=== PATIENT | female | born 1930 | race Hispanic/Latino ===

== ENCOUNTER 2018-06-05 09:44 | Inpatient (IN) | payer MEDICARE ==
[2018-06-05 09:46] VITALS: BMI 26.4
--- NOTE | 2018-06-05 11:07 | ED PDOC ---
Arrival/HPI - General Chief Complaint: Trauma Time Seen by Provider: 06/05/18 10:02 Historian: Patient - History of Present Illness Narrative History of Present Illness (Text): 06/05/18 10:02 Trisha Fink is an 87 year old female who presents to the emergency department with complaints of lower back pain, knee pain, and dizziness s/p mechanical fall this morning. Patient informs she became dizzy upon getting out of bed to go to the restroom. Patient remained on the floor and was unable to move for several hours. Patient informs she has history of falling and vertigo. Patient states her dizziness felt consistent with past episodes of vertigo. Patient informs no loss of consciousness and denies any urinary or bowel incontinence. Patient currently takes Xanax and Meclizine. Patient denies fevers, chills, headache, chest pain, shortness of breath, dyspnea on exertion, cough, abdominal pain, nausea, vomiting, diarrhea, neck pain, or any other complaint. Past medical history: Tinnitus, hypertension, osteoarthritis Past surgical history: left knee replacement PMD: Dr. Pierre Time/Duration: 4-6 hours Symptom Onset: Sudden Activities at Onset: Light Context: Home Past Medical History - Provider Review Nursing Documentation Reviewed: Yes - Tetanus Immunization Tetanus Immunization: Unknown - Cardiac Hx Cardiac Disorders: Yes Hx Hypertension: Yes - Pulmonary Hx Respiratory Disorders: No Hx Asthma: No Hx Bronchitis: No Hx Chronic Obstructive Pulmonary Disease (COPD): No Hx Emphysema: No Hx Pneumonia: No Hx Respiratory Aspiration: No Hx Respiratory Tract Infection: No Hx Sleep Apnea: No Hx Tuberculosis: No - Neurological Hx Dizziness: Yes Hx Transient Ischemic Attacks (TIA): No - HEENT Hx HEENT Disorder: Yes Hx Blind: No Hx Cataracts: No Hx Deafness: No Hx Difficulty Chewing: No Hx Epistaxis: No Hx Glaucoma: Yes Hx Macular Degeneration: No Other/Comment: Tinitus - Renal Hx Renal Disorder: No Hx Dialysis: No Hx Kidney Stones: No Hx Neurogenic Bladder: No Hx Pyelonephritis: No Hx Renal Cancer: No Hx Renal Failure: No - Endocrine/Metabolic Hx Diabetes Mellitus Type 1: No Hx Diabetes Mellitus Type 2: No - Hematological/Oncological Hx Blood Disorders: No Hx AIDS: No Hx Anemia: No Hx Cancer: No Hx Chemotherapy: No Hx Cirrhosis: No Hx Hemophilia: No Hx Hepatitis A: No Hx Hepatitis B: No Hx Hepatitis C: No Hx Metastasis: No Hx Shingles: No Hx Sickle Cell Disease: No Hx Unexplained Bleeding: No - Integumentary Hx Dermatological Disorder: No Hx Basal Cell Carcinoma: No Hx Eczema: No Hx Melanoma: No Hx Psoriasis: No Hx Squamous Cell Carcinoma: No - Musculoskeletal/Rheumatological Hx Arthritis: Yes Hx Osteoporosis: Yes - Gastrointestinal Hx Gastrointestinal Disorders: Yes (CONSTIPATION,DIVERTICULITIS) - Genitourinary/Gynecological Hx Genitourinary Disorders: Yes (URINARY FREQUENCY,URGENCY,UTI) Hx Reproductive Disorders: No - Psychiatric Hx Psychophysiologic Disorder: Yes Hx Anxiety: Yes Hx Bipolar Disorder: No Hx Depression: No Hx Emotional Abuse: No Hx Hallucinations: No Hx Panic Disorder: No Hx Post Traumatic Stress Disorder: No Hx Psychosis: No Hx Physical Abuse: No Hx Schizophrenia: No Hx Sexual Abuse: No Hx Substance Use: No - Surgical History Hx Amputation: No Hx Appendectomy: No Hx Cardiac Catheterization: No Hx Cholecystectomy: No Hx Coronary Stent: No Hx Gastric Bypass Surgery: No Hx Hysterectomy: No Hx Joint Replacement: Yes (lt knee replacement) Hx Kidney Transplant: No Hx Liver Transplant: No Hx Mastectomy: No Hx Musculoskeletal Surgery: No Hx Open Heart Surgery: No Hx Orthopedic Surgery: No Hx Splenectomy: No Hx Valve Replacement: No - Suicidal Assessment Feels Threatened In Home Enviroment: No Family/Social History - Physician Review Nursing Documentation Reviewed: Yes Family/Social History: No Known Family HX Smoking Status: Former Smoker Hx Alcohol Use: No Hx Substance Use: No Allergies/Home Meds Allergies/Adverse Reactions: Allergies venom-honey bee [bee venom (honey bee)] Allergy (Verified 06/05/18 10:15) SWELLING Hair Dye Allergy (Uncoded 06/05/18 10:15) URTICARIA Home Medications: Home Meds Medication Instructions Recorded Confirmed ALPRAZolam 0.5 mg PO HS 09/26/15 06/05/18 Aspirin [Adult Low Dose Aspirin EC] 81 mg PO DAILY 06/05/18 06/05/18 Cholecalciferol (Vitamin D3) 2,000 unit PO DAILY 06/05/18 06/05/18 [Vitamin D3] Famotidine [Heartburn Prevention] 20 mg PO BID 06/05/18 06/05/18 Ibuprofen [Motrin Tab] 800 mg PO BID 06/05/18 06/05/18 Meclizine [Antivert] 12.5 mg PO TID PRN 06/05/18 06/05/18 Review of Systems - Physician Review All systems were reviewed & negative as marked: Yes - Review of Systems Constitutional: absent: Fevers, Night Sweats Respiratory: absent: SOB, Cough Cardiovascular: absent: Chest Pain Gastrointestinal: absent: Abdominal Pain, Diarrhea, Nausea, Vomiting Genitourinary Female: absent: Urine Output Changes Musculoskeletal: Arthralgias (both knees), Back Pain (lower back and spine) Neurological: Dizziness. absent: Headache Physical Exam Vital Signs Reviewed: Yes Vital Signs Temp Pulse Resp BP Pulse Ox 06/05/18 09:58 97.9 F 88 18 178/94 H 97 Temperature: Afebrile Blood Pressure: Hypertensive Pulse: Regular Respiratory Rate: Normal Appearance: Positive for: Well-Appearing, Non-Toxic, Comfortable Pain Distress: None Mental Status: Positive for: Alert and Oriented X 3 - Systems Exam Head: Present: Atraumatic, Normocephalic Pupils: Present: PERRL Extroacular Muscles: Present: EOMI Conjunctiva: Present: Normal Ears: Present: Normal, NORMAL TM. No: Erythema Mouth: Present: Moist Mucous Membranes Pharnyx: Present: Normal. No: ERYTHEMA, EXUDATE Nose (Internal): Present: Normal Inspection, No Active Bleeding, Moist. No: Purulent Mucous, Septal Deviation, Septal Hematoma Neck: Present: Normal Range of Motion. No: Meningeal Signs, MIDLINE TENDERNESS Respiratory/Chest: Present: Clear to Auscultation, Good Air Exchange. No: Respiratory Distress, Accessory Muscle Use Cardiovascular: Present: Regular Rate and Rhythm, Normal S1, S2. No: Murmurs Abdomen: No: Tenderness, Distention, Peritoneal Signs Back: Present: Paraspinal Tenderness (left side). No: Other (No vertebral tenderness) Upper Extremity: Present: Normal Inspection, NORMAL PULSES, Neurovascularly Intact. No: Cyanosis, Edema Lower Extremity: Present: Normal Inspection, NORMAL PULSES, Neurovascularly Intact. No: Edema, Tenderness (right knee pain but no tenderness) Neurological: Present: GCS=15, CN II-XII Intact, Speech Normal Skin: Present: Warm, Dry, Normal Color. No: Rashes Psychiatric: Present: Alert, Oriented x 3, Normal Insight, Normal Concentration Medical Decision Making ED Course and Treatment: 06/05/18 10:02 Impression: Patent is a 87 year old female who presents to the Emergency department with complaints of lower back and knee pain s/p mechanical fall. ?Rhabdo 2/2 fall. Patient also reports increased falls, but no FND. No cauda equina signs. No chest pain or sob. No abdominal pain. Plan: -- Labs -- Urinalysis -- EKG -- CT C-Spine W/O Contrast -- CT Head W/O Contrast -- CT Lumbar Spine W/O Contrast -- X-Ray Hips Bilateral -- X-Ray Left Knee -- X-Ray Right Knee -- X-Ray Bilateral -- Reassess and disposition Prior Visits: Notes and results from previous visits were reviewed. Progress Notes: 06/05/18 11:15 Reviewed EKG, shows that; Sinus Tachycardia at 105 BPM, LBBB seen previously (last EKG 2015, also LBBB), no STEMI 06/05/18 13:[address] Pierre, who recommends continuation of aspirin. Troponin mildy elevated but given fall will hold on heparin. Dr. 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 Bennett 06/05/18 14:39 CT of Lumbar Spine reviewed by radiologist, shows: Multilevel disc degeneration. No evidence of acute compression fracture. X-ray of knee reviewed by radiologist, shows: Right knee: There is joint space narrowing in the lateral compartment and patellofemoral joint. Left Knee: Left knee prosthesis with no fracture or loosening. X-ray of Hip/Pelvis reviewed by radiologist, shows: Unremarkable radiographs of the hips and pelvis. CT of Head reviewed by radiologist, shows no acute findings. CT of Cervical Spine reviewed by radiologist, shows no acute findings. Appreciate consult w/ Dr. Ferguson (covering for Dr. Bennett)- no heparin at this time, he will follow in the morning. Pt in NAD, agreeable to plan. - RAD Interpretation Research Associate Policy: Radiologist - EKG Interpretation Interpreted by ED Physician: Yes Type: 12 lead EKG - Scribe Statement The provider has reviewed the documentation as recorded by the Sherman erickson with Marci All medical record entries made by the Sohailiblyle were at my direction and personally dictated by me. I have reviewed the chart and agree that the record accurately reflects my personal performance of the history, physical exam, medical decision making, and the department course for this patient. I have also personally directed, reviewed, and agree with the discharge instructions and disposition. Disposition/Present on Arrival - Present on Arrival Any Indicators Present on Arrival: No History of DVT/PE: No History of Uncontrolled Diabetes: No Urinary Catheter: No History of Decub. Ulcer: No History Surgical Site Infection Following: None - Disposition Have Diagnosis and Disposition been Completed?: Yes Diagnosis: Elevated troponin Disposition Time: 13:25 Patient Problems: Current Active Problems Problem Status Onset Elevated troponin Acute Condition: GOOD
[2018-06-05 12:10] LABS: BASO # 0.03 K/mm3 (0.0-2.0); BASO % 0.3 % (0.0-3.0); EOS % 0.4 % (1.5-5.0); HEMOGLOBIN 15.1 g/dL (12.0-16.0); LYMPH # 1.1 (1.2-3.4); LYMPH % 10.1 % (22.0-35.0); MEAN CELL VOLUME 90.9 fl (80.0-105.0); MONO % 9.3 % (1.0-6.0); RBC 5.03 10^6/uL (3.5-6.1); RED CELL DISTRIBUTION WIDTH 13.1 % (11.5-14.5); WHITE BLOOD COUNT 11.1 10^3/uL (4.5-11.0)
[2018-06-05 12:21] LABS: ALB/GLOB RATIO 1.3 (1.1-1.8); ALBUMIN 4.2 g/dL (3.0-4.8); ALT/SGPT 13 U/L (7-56); AST/SGOT 31 U/L (14-36); BLOOD UREA NITROGEN 21 mg/dL (7-21); CALCIUM 9.7 mg/dL (8.4-10.5); GFR NON-AFRICAN AMERICAN > 60
[2018-06-05 12:22] LABS: PH,URINE 6.5 (4.7-8.0); URINE BILIRUBIN NEGATIVE (NEGATIVE); URINE BLOOD NEGATIVE (NEGATIVE); URINE GLUCOSE (UA) NEGATIVE (NEGATIVE); URINE LEUKOCYTE ESTERASE SMALL Leu/uL (NEGATIVE); URINE PROTEIN NEGATIVE mg/dL (<30 mg/dL); URINE UROBILINOGEN 0.2 E.U./dL (<1 E.U./dL)
[2018-06-05 12:23] LABS: URINE APPEARANCE CLEAR (CLEAR); URINE COLOR YELLOW (YELLOW)
[2018-06-05 12:25] LABS: URINE RBC 0 - 2 /hpf (0-2)
[2018-06-05 12:26] LABS: URINE BACTERIA SMALL /hpf
[2018-06-05 12:53] LABS: TROPONIN I 0.55 ng/mL
--- NOTE | 2018-06-05 13:27 | CT ---
Date of service: 06/05/2018 PROCEDURE: CT HEAD WITHOUT CONTRAST. HISTORY: fall COMPARISON: 09/23/2015 TECHNIQUE: Axial computed tomography images were obtained through the head/brain without intravenous contrast. Radiation dose: Total exam DLP = 858.54 mGy-cm. This CT exam was performed using one or more of the following dose reduction techniques: Automated exposure control, adjustment of the mA and/or kV according to patient size, and/or use of iterative reconstruction technique. FINDINGS: HEMORRHAGE: No intracranial hemorrhage. BRAIN: No mass effect or edema. Chronic microvascular changes are seen in the periventricular white matter. VENTRICLES: Unremarkable. No hydrocephalus. CALVARIUM: Unremarkable. PARANASAL SINUSES: Unremarkable as visualized. No significant inflammatory changes. MASTOID AIR CELLS: Unremarkable as visualized. No inflammatory changes. OTHER FINDINGS: None. IMPRESSION: No acute findings
--- NOTE | 2018-06-05 13:31 | CT ---
Date of service: 06/05/2018 PROCEDURE: CT Cervical Spine without contrast HISTORY: fall COMPARISON: None available. TECHNIQUE: Axial computed tomography images were obtained of the cervical spine without the use of intravenous contrast. Coronal and sagittal reformatted images were created and reviewed. Radiation dose: Total exam DLP = 487.04 mGy-cm. This CT exam was performed using one or more of the following dose reduction techniques: Automated exposure control, adjustment of the mA and/or kV according to patient size, and/or use of iterative reconstruction technique. FINDINGS: VERTEBRAE: No fracture. Normal alignment. No destructive bony lesion. DISCS/SPINAL CANAL/NEURAL FORAMINA: No significant central canal or neural foraminal stenosis. There is disc space narrowing at C3-4 and C4-5. disc bulge and small central disc protrusion PARASPINAL SOFT TISSUES: Unremarkable. OTHER FINDINGS: None. IMPRESSION: No acute findings
--- NOTE | 2018-06-05 13:36 | CT ---
Date of service: 06/05/2018 PROCEDURE: CT Lumbar Spine without contrast HISTORY: fall COMPARISON: None available. TECHNIQUE: Axial computed tomography images were obtained of the lumbar spine without the use of intravenous contrast. Coronal and sagittal reformatted images were created and reviewed. Radiation dose: Total exam DLP = 975.67 mGy-cm. This CT exam was performed using one or more of the following dose reduction techniques: Automated exposure control, adjustment of the mA and/or kV according to patient size, and/or use of iterative reconstruction technique. FINDINGS: VERTEBRAE: Unremarkable. No fracture. Normal alignment. DISCS/SPINAL CANAL/NEURAL FORAMINA: L1-2: Moderate disc bulge right greater than left. L2-3: Disc degeneration L3-4: Severe disc degeneration with loss of disc height and disc bulging. L4-5: Severe stenosis secondary to facet arthropathy and disc bulging. L5-S1: Mild disc bulge PARASPINAL SOFT TISSUES: Unremarkable. OTHER FINDINGS: None. IMPRESSION: Multilevel disc degeneration. No evidence of acute compression fracture
--- NOTE | 2018-06-05 13:56 | RAD ---
PROCEDURE: Radiographs of the pelvis and bilateral hips HISTORY: fall COMPARISON: None. FINDINGS: BONES: Pelvis: Unremarkable. Right hip:Unremarkable. Left hip:Unremarkable. JOINTS: Right hip: Unremarkable. Left hip: Unremarkable. Sacroiliac Joints: Unremarkable. Pubic symphysis: Unremarkable. SOFT TISSUES: Normal. OTHER FINDINGS: None. IMPRESSION: Unremarkable radiographs of the hips and pelvis.
--- NOTE | 2018-06-05 13:58 | RAD ---
Date of service: 06/05/2018 PROCEDURE: Bilateral Knee Radiographs. HISTORY: fall COMPARISON: None. FINDINGS: BONES: Right Knee: Normal. No fracture. Left Knee: Normal. No fracture. JOINTS: Right Knee: There is joint space narrowing in the lateral compartment and patellofemoral joint Left knee: Left knee prosthesis with no fracture or loosening SOFT TISSUES: Right Knee: Normal. Left Knee: Normal. JOINT EFFUSION: Right Knee: None. Left Knee: None. OTHER FINDINGS: None. IMPRESSION: Right Knee: There is joint space narrowing in the lateral compartment and patellofemoral joint Left knee: Left knee prosthesis with no fracture or loosening
--- NOTE | 2018-06-05 20:21 | CARD ---
APPROVED REPORT Date of service: 06/05/2018 EKG Measurement Heart [id number] <Conclusion> Sinus tachycardia with frequent premature ventricular complexes Possible Left atrial enlargement Left bundle branch block Abnormal ECG
[2018-06-05 21:02] LABS: TROPONIN I 1.03 ng/mL
[2018-06-06] MEDS: Latanoprost 2.5 ml Opht Soln OU SCH ×2 (01:03→21:49)
[2018-06-06] MEDS: Calcitonin 200 Int Units/Inh Nasal Spray (3.7 ml) NS SCH (09:40)
--- NOTE | 2018-06-06 14:41 | CP.PCM.PCO ---
Physician Communication Note - Physician Communication Note Physician Communication Note: elevated troponin's, echo pending result, PT eval pending, reeval in am
--- NOTE | 2018-06-06 19:08 | HP ---
DATE OF EXAM: 06/06/2018 HISTORY OF PRESENT ILLNESS: An 87-year-old white female who had multiple falls in the emergency room. The patient was found to have elevated troponin, elevated BMP, congestive heart failure and possible acute myocardial infarction. The patient denies any chest pain, palpitation, shortness of breath, dyspnea on exertion, nausea, vomiting, or diaphoresis. The patient states that she normally wakes at 4 o'clock in the morning and when she is attempting to get to the bathroom, she falls. She has fall multiple times in the last week, I think this is going back actually for many months, but has increased in intensity in the last several days, 2 or 3 days. REVIEW OF SYSTEMS: Positive musculoskeletal for knee pain. History of left knee replacement, pelvic pain, back pain, cervical and lumbar. Cardiac is negative for palpitations, chest pain, shortness of breath, diaphoresis, nausea and vomiting. Respiratory is negative for cough, shortness of breath, sputum production, hemoptysis. GI is negative for nausea, vomiting, and diarrhea. Neurological examination is positive only for tremor and for some increased weakness legs with walking. PHYSICAL EXAMINATION: GENERAL: A well-developed predominantly white female, in no apparent distress this morning. The patient is a nonsmoker, nondrinker. HEENT: Essentially within normal limits. HEART: Reveals regular sinus rhythm, but systolic ejection murmur at left sternal border. The patient does state in her history that she possibly had rheumatic fever as a child was not documented. ABDOMEN: Soft. Bowel sounds are normoactive. EXTREMITIES: Without cyanosis, clubbing or edema. 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 There is also some nodules on the hands with some old deviation bilaterally. Extremities are without cyanosis, clubbing or edema. IMPRESSION: This is an 87-year-old white female with multiple falls, admitted to the hospital after multiple falls and was found to have positive troponin x2 and elevated BNP over 6000, rule out coronary artery disease, rule out heart disease, rule out unsteady gait secondary to tremor with neurological causes. Armando Pierre MD
--- NOTE | 2018-06-06 19:46 | CARD ---
APPROVED REPORT Date of service: 06/06/2018 EXAM: Two-dimensional and M-mode echocardiogram with Doppler and color Doppler. INDICATION Congestive Heart Failure 2D DIMENSIONS Left Atrium (2D)5.3 (1.6-4.0cm)IVSd1.2 (0.7-1.1cm) LVDd5.6 (3.9-5.9cm)LVOT Diameter1.9 (1.8-2.4cm) PWd1.4 (0.7-1.1cm)LVDs4.8 (2.5-4.0cm) FS (%) 14.0 %LVEF (%)28.9 (>50%) M-Mode DIMENSIONS Aortic Root2.90 (2.2-3.7cm)Aortic Cusp Exc.1.30 (1.5-2.0cm) Aortic Valve AoV Peak Lpazylnf794.0cm/sAoV VTI39.8cmAO Peak GR.40mmHg LVOT Peak Qglunqqa551.0cm/sLVOT VTI20.20cmAO Mean GR.10mmHg VIJAYA (VMAX)1.13ga8FVG (VTI)1.27dr9XP P 1/2 Yfjf143ww Mitral Valve MV E Gqidepun29.0cm/sMV A Gfwolytk15.8cm/sE/A ratio1.0 TDI Lateral E' Peak V2.92cm/sMedial E' Peak V3.90cm/sE/Lateral E'25.7 E/Medial E'19.2 Pulmonary Valve PV Peak Odjoqpui389.0cm/sPV Peak Grad.5mmHg Tricuspid Valve TR Peak Hixzfovm752om/sRAP FDBJCRZJ47pfStUL Peak Gr.26mmHg SVPW09tsCn LEFT VENTRICLE The left ventricle is normal size. There is borderline concentric left ventricular hypertrophy. The systolic function is severely impaired. Significant regional wall motion abnormalities noted. No left ventricle thrombus noted on this study. RIGHT VENTRICLE The right ventricle is normal size. There is normal right ventricular wall thickness. The right ventricular systolic function is normal. ATRIA The left atrium is moderately dilated. The right atrium is mildly dilated. AORTIC VALVE The aortic valve is moderately thickened. There is mild to moderate aortic regurgitation. MITRAL VALVE The mitral valve is mildly thickened. Mitral regurgitation is mild. TRICUSPID VALVE There is mild tricuspid regurgitation. There is mild pulmonary hypertension. PULMONIC VALVE There is mild pulmonic valvular regurgitation. GREAT VESSELS The aortic root is normal in size. PERICARDIAL EFFUSION There is a trace pericardial effusion. <Conclusion> The left ventricle is normal size. There is borderline concentric left ventricular hypertrophy. The systolic function is severely impaired. Significant regional wall motion abnormalities noted. No left ventricle thrombus noted on this study. There is mild to moderate aortic regurgitation. Mitral regurgitation is mild. There is mild tricuspid regurgitation. There is mild pulmonary hypertension.
--- NOTE | 2018-06-07 01:17 | CON ---
DATE: 06/06/2018 REQUESTING PHYSICIAN: Dr. Pierre REASON FOR CONSULTATION: Elevated troponin. HISTORY: This is an 87-year-old woman with no prior cardiac history, who has had several falls at home. She denied any chest pain. Her troponin was noted be elevated at 0.55 and cardiac evaluation was requested. She is seen lying in bed on telemetry. She states she is currently comfortable except for some knee pain. She denied any loss of consciousness with her falls. She has had multiple falls in the recent past. PAST HISTORY: Reportedly notable for arthritis, hypertension and vertigo. She has undergone a prior left knee replacement. MEDICATIONS AT HOME: Include aspirin, Pepcid, Antivert and alprazolam as needed. ALLERGIES: NO DRUG ALLERGIES NOTED. SOCIAL HISTORY: She is a former smoker. She denies alcohol use. FAMILY HISTORY: Unremarkable for premature heart disease. REVIEW OF SYSTEMS: Ten-point review of systems is notable mainly for problems mentioned above. PHYSICAL EXAMINATION: GENERAL: She is a very elderly woman who appears comfortable at rest. VITAL SIGNS: Her blood pressure is 120/86 with a pulse of 80 and sinus, respirations of 16. She is afebrile. HEENT: Normocephalic, atraumatic. NECK: Supple. No JVD noted. CHEST: Few scattered rhonchi heard. HEART: PMI displaced laterally with soft tones noted and a systolic murmur noted at the left sternal border as well as diastolic murmur at left sternal border. ABDOMEN: Soft, nontender, normoactive bowel sounds. EXTREMITIES: No edema. SKIN: Warm and dry. PSYCHIATRIC: Normal mood and affect. NEUROLOGIC: Appears alert and oriented x3. No gross motor or sensory deficits noted. DIAGNOSTIC DATA: White count 11.1, hemoglobin and hematocrit of 15.1 and 45.7 with platelet count of 225,000. Potassium 3.6. BUN and creatinine of 21 and 0.5. Initial troponin 0.55, repeat is 1.03. BNP 6890. Electrocardiogram reveals sinus tachycardia with PVCs, left atrial abnormality and left bundle-branch block pattern, baseline artifact is noted. Chest x-ray was not found in the chart. IMPRESSION: 1. Elevated troponin, doubt acute myocardial infarction given absence of chest pain. Left bundle-branch block pattern is chronic compared to a prior tracing. 2. Possible valvular heart disease with possible aortic insufficiency and possible aortic stenosis noted on examination. 3. Gait instability, needs to be addressed. RECOMMENDATIONS: Repeat troponin through the morning will be planned. Repeat electrocardiogram will be planned as well. An echocardiogram was performed and will be reviewed. In general, conservative management appears most reasonable given her advanced age and general condition. Thank you for this consultation. We will be happy to follow along through her hospital course. Jose Falcon MD
[2018-06-07 07:06] LABS: BASO # 0.03 K/mm3 (0.0-2.0); BASO % 0.6 % (0.0-3.0); EOS # 0.3 (0.0-0.7); EOS % 6.5 % (1.5-5.0); HEMOGLOBIN 14.2 g/dL (12.0-16.0); LYMPH # 1.7 (1.2-3.4); LYMPH % 31.6 % (22.0-35.0); MEAN CELL VOLUME 91.3 fl (80.0-105.0); MEAN CORPUSCULAR HEMOGLOBIN 29.5 pg (25.0-35.0); MEAN CORPUSCULAR HGB CONC 32.3 g/dl (31.0-37.0); MEAN PLATELET VOLUME 10.8 fl (7.0-11.0); MONO # 0.7 (0.1-0.6); MONO % 12.7 % (1.0-6.0); RBC 4.81 10^6/uL (3.5-6.1); RED CELL DISTRIBUTION WIDTH 13.1 % (11.5-14.5); WHITE BLOOD COUNT 5.3 10^3/uL (4.5-11.0)
[2018-06-07 09:20] LABS: ALB/GLOB RATIO 1.2 (1.1-1.8); ALBUMIN 3.5 g/dL (3.0-4.8); ALT/SGPT 21 U/L (7-56); AST/SGOT 35 U/L (14-36); BLOOD UREA NITROGEN 19 mg/dL (7-21); CALCIUM 8.8 mg/dL (8.4-10.5); GFR NON-AFRICAN AMERICAN > 60; HDL CHOLESTEROL 39 mg/dL (29-60)
[2018-06-07 09:30] LABS: LDL CHOLESTEROL 92 mg/dL (0-129)
[2018-06-07 09:59] LABS: TROPONIN I 0.31 ng/mL
--- NOTE | 2018-06-07 10:04 | PN ---
DATE: 06/07/2018 SUBJECTIVE: An 87-year-old white female admitted after multiple falls, had positive troponin. Echocardiograms shows severely decreased left ventricular function with ejection fraction of 28% and diffused wall motion abnormalities. The patient is seeing Hospitalist Dr. Falcon and repeat troponin are pending. The patient did not have any chest pain, does have severe gait instability. We will physical therapy. We will discuss utility of defibrillator with Dr. Falcon due to be low ejection. Continue treatment for acute myocardial infarction, non-STEMI myocardial infarction with low ejection fraction. Chest is clear to auscultation. . Extremities without cyanosis, clubbing or edema. Armando Pierre MD
[2018-06-07] MEDS: Calcitonin 200 Int Units/Inh Nasal Spray (3.7 ml) NS SCH (10:11)
[2018-06-07 10:33] LABS: FREE T4 1.37 ng/dL (0.78-2.19)
--- NOTE | 2018-06-07 13:41 | PN ---
DATE: 06/07/2018 SUBJECTIVE: The patient is seen lying in bed on telemetry. She states she is feeling somewhat better. She is concerned regarding her recurrent falls. No significant dysrhythmias have been noted. Except for occasional PVC. Her echocardiogram was reviewed and showed evidence of severely reduced LV systolic dysfunction with regional wall motion abnormalities. Mild to moderate aortic insufficiency as well as mild mitral regurgitation. Tricuspid regurgitation were present. She denies any chest pain or dyspnea. OBJECTIVE: GENERAL: She is a very elderly woman, who appears comfortable at rest. VITAL SIGNS: Blood pressure 136/70 with pulse of 64 and sinus with occasional PVCs. HEENT: No JVD. CHEST: Few scattered rhonchi heard. HEART: PMI displaced laterally with soft tones noted. ABDOMEN: Soft, nontender, normoactive bowel sounds. EXTREMITIES: No edema. DIAGNOSTIC DATA: Potassium is 3.5, BUN and creatinine 19 and 0.5. White count is 5.3, hemoglobin and hematocrit 14.2 and 43.9 with a platelet count of 189,000. Troponin 0.31. IMPRESSION: 1. Recurrent falls appear most consistent with gait instability and mechanical falls, no evidence of documented significant dysrhythmias except for isolated premature ventricular contractions. 2. Borderline troponin elevation, doubt acute myocardial fraction given her absence of chest pain. 3. Mdic-ia-omnediag aortic stenosis. 4. Severe left ventricular systolic dysfunction with probable underlying coronary artery disease. RECOMMENDATIONS: At this time, conservative management appears most reasonable. Beta-aleksandr therapy has been initiated and angiotensin receptor aleksandr be added as well. She will continue on telemetry for additional 24 hours and if no significant dysrhythmias were noted, this can be discontinued. Gait training should be pursued. Discussion will be had with Dr. Pierre and the patient regarding the option of stress testing to screen for cardiac ischemia; however, given her age, she initially expressed a wish for very conservative care which appears appropriate. We will continue to follow and make further recommendations as appropriate. Jose Falcon MD [facility]
--- NOTE | 2018-06-07 16:51 | CP.PCM.PCO ---
Physician Communication Note - Physician Communication Note Physician Communication Note: PT recommended BRENDA, cleared by cardiology CM/SW D/C planning
[2018-06-07] MEDS: Latanoprost 2.5 ml Opht Soln OU SCH (21:48)
[2018-06-08 06:44] VITALS: O2SAT 97
[2018-06-08] MEDS: Calcitonin 200 Int Units/Inh Nasal Spray (3.7 ml) NS SCH (10:12)
--- NOTE | 2018-06-08 10:58 | PN ---
DATE: 06/08/2018 SUBJECTIVE: The patient is an 87-year-old white female admitted to the hospital with multiple falls and was found to have positive troponin x3, trending low at this point, seen in consultation with Dr. Falcon myocardial infarction. The patient refusing stress test her advanced age and difficulty with walking, it is not recommended by Dr. Falcon. The patient will be treated with beta-blockers, anticoag medication and statins. The patient will be transferred to as soon as the bed is available recommended by PT. PHYSICAL EXAMINATION: VITAL SIGNS: Stable. CHEST: Clear to auscultation. HEART: Regular sinus rhythm. EXTREMITIES: Without cyanosis, clubbing or edema. No chest pain. Armando Pierre MD
--- NOTE | 2018-06-08 15:23 | PN ---
DATE: 06/08/2018 SUBJECTIVE: The patient is seen lying in bed on telemetry. She states she is comfortable. She tolerated her current medications. These include Carvedilol 6.25 mg b.i.d., losartan 25 mg daily, Ecotrin once daily, Lipitor 20 mg daily, Pepcid and eye drops. OBJECTIVE: GENERAL: She is very elderly women who appears comfortable at the present time. VITAL SIGNS: Blood pressure 130/70, pulse 70 in sinus and respirations are 16. She is afebrile. HEENT: No JVD. CHEST: Few scattered rhonchi heard. HEART: PMI displaced laterally with soft tones noted. ABDOMEN: Soft and nontender with normoactive bowel sounds. EXTREMITIES: No edema. DIAGNOSTIC DATA: No blood work pending from this morning. IMPRESSION: 1. Recurrent falls, felt secondary to gait instability. 2. Borderline elevation troponin, doubt acute myocardial infarction. 3. Zxfa-iu-acfjncjl aortic stenosis. 4. Severe left ventricular systolic dysfunction with probable underlying coronary artery disease. RECOMMENDATIONS: Continue conservative management with angiotensin receptor aleksandr and beta-aleksandr was advised. Statin therapy and aspirin therapy will be continued as well. She was encouraged to consider transfer to a transitional care unit for gait training and balance issues. We will continue to follow and make further recommendations as appropriate. Jose Falcon MD MTDD
[2018-06-08 17:47] VITALS: BP 108/67; PULSE 56; RESP 18; TEMP 98.5
== END 2018-06-08 21:02 | DRG 149 ==
LOC: ED 09:44 → ERH 14:09 → 2RSO 23:13
PROVIDERS: ADMIT Internal Medicine; ATTEND Internal Medicine
DX: R42 Dizziness and giddiness (principal); R26.9 Unspecified abnormalities of gait and mobility; M54.5 Low back pain; M25.569 Pain in unspecified knee; W18.30XA Fall on same level, unspecified, initial encounter; Z91.81 History of falling; Z79.82 Long term (current) use of aspirin; R74.8 Abnormal levels of other serum enzymes; I10 Essential (primary) hypertension; R29.6 Repeated falls; I25.10 Atherosclerotic heart disease of native coronary artery without angina pectoris; Z87.891 Personal history of nicotine dependence; I44.7 Left bundle-branch block, unspecified; I35.0 Nonrheumatic aortic (valve) stenosis; H40.9 Unspecified glaucoma; I08.3 Combined rheumatic disorders of mitral, aortic and tricuspid valves; I11.0 Hypertensive heart disease with heart failure; Z96.652 Presence of left artificial knee joint; I50.9 Heart failure, unspecified; M81.0 Age-related osteoporosis without current pathological fracture; Z79.899 Other long term (current) drug therapy